=== PATIENT | female | born 2000 | race Hispanic/Latino ===

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

== ENCOUNTER 2018-04-06 20:34 | Emergency (ER) | payer SELFPAY ==
[2018-04-06 23:05] LABS: Bilirubin Small (Negative); Blood, Urine Negative (Negative); Clarity CLEAR (Clear); Glucose, Urine (Dipstick) Negative (Negative); Leukocyte Negative (Negative); Nitrite Negative (Negative); Protein, Urine (Dipstick) Trace mg/dL (Neg-Trace); Specific Gravity, Urine 1.031 (1.002-1.036); pH, Urine 5.5 (5.0-9.0)
[2018-04-07 00:14] LABS: Pregnancy Test - Urine (BHCG) Negative (Negative); Pregu Control Background? CLEAR/WHITE (CLR/WHITE); Pregu Control Bar Appear? YES (CONTROL BAR); Specific Gravity 1.031 (1.002-1.036)
[2018-04-07 20:24] LABS: Chlamydia by PCR Not Detected (NotDetected); GC by PCR Not Detected (NotDetected)
== END 2018-04-07 00:28 | disposition home or self-care (01) ==
LOC: ERS 20:34
DX: N89.8 Other specified noninflammatory disorders of vagina (principal); F17.290 Nicotine dependence, other tobacco product, uncomplicated
CPT/HCPCS: 81003; 81025; 87480; 87491; 87510; 87591; 87660; 99284

== ENCOUNTER 2018-04-21 19:11 | Emergency (ER) | payer SELFPAY | END 2018-04-21 20:47 | disposition left against medical advice (07) | LOC: ERS 19:11 | DX: Z53.21 Procedure and treatment not carried out due to patient leaving prior to being seen by health care provider (principal) ==

== ENCOUNTER 2018-04-24 19:46 | Emergency (ER) | payer SELFPAY ==
--- NOTE | 2018-04-24 20:31 | RAD ---
PA AND LATERAL CHEST RADIOGRAPH: Date: 04-24-18 History: Shortness of breath that started on Tuesday. Comparison: 03-14-17 FINDINGS: Cardiac silhouette and pulmonary vasculature are within normal limits. Lungs are clear. There has bee n no interval change since prior exam. IMPRESSION: No acute cardiopulmonary process. POS: [facility]
== END 2018-04-24 22:10 | disposition home or self-care (01) ==
LOC: ERS 19:46
DX: J20.9 Acute bronchitis, unspecified (principal); F41.9 Anxiety disorder, unspecified; F32.9 Major depressive disorder, single episode, unspecified
CPT/HCPCS: 71046